=== PATIENT | male | born 1960 | race African-American/Black ===

== ENCOUNTER 2022-04-24 10:14 | Emergency (ER) | payer MEDICAID, OTHER ==
[~2022-04-24] VITALS: Ht 177.8 cm; Wt 110.0 kg
[2022-04-24 12:27] LABS: BASOPHILS % 0.7 % (0.0-2.0); HEMATOCRIT. 29.3 % (42.0-52.0); HEMOGLOBIN. 9.4 g/dL (14.0-18.0); LYMPHOCYTES % 18.5 % (20.0-50.0); MEAN CORPUSCULAR HEMOGLOBIN 25.4 pg (28.0-32.0); MEAN CORPUSCULAR VOLUME 79.1 fL (80.0-94.0); MEAN PLATELET VOLUME 9.5 fl (7.4-10.4); MONOCYTES % 7.8 % (2.0-8.0); PLATELET 208 x1000/uL (130-400); RED CELL DISTRIBUTION WIDTH 14.3 % (11.6-14.6)
[2022-04-24 12:30] LABS: CHLORIDE 111 mEq/L (98-107)
[2022-04-24 14:36] VITALS: BP 134/65
== END 2022-04-24 14:46 | disposition short-term general hospital (02) ==
LOC: ER 10:44 → CANBEDREQ 14:24 → ER 14:46
DX: R07.89 Other chest pain (principal); R00.1 Bradycardia, unspecified; I10 Essential (primary) hypertension; E11.9 Type 2 diabetes mellitus without complications; E03.9 Hypothyroidism, unspecified; Z20.822 Contact with and (suspected) exposure to COVID-19
CPT/HCPCS: 36415; 71045; 80053; 83880; 84484; 85025; 87426; 93005; 99285; C9803